=== PATIENT | female | born 1980 | race Two or more races ===

== ENCOUNTER 2023-01-31 21:15 | Emergency (ER) | payer MEDICAID, OTHER ==
[~2023-01-31] VITALS: Ht 170.2 cm; Wt 54.4 kg
[2023-01-31 21:20] VITALS: BP 129/77; PULSE 125; RESP 18; O2SAT 99
[2023-02-01] MEDS ORDERED: AUG875T PO (11:21)
== END 2023-01-31 21:25 | disposition left against medical advice (07) ==
LOC: EDBD 21:15 → ER 21:21
DX: S60.562A Insect bite (nonvenomous) of left hand, initial encounter (principal); Z53.21 Procedure and treatment not carried out due to patient leaving prior to being seen by health care provider; W57.XXXA Bitten or stung by nonvenomous insect and other nonvenomous arthropods, initial encounter; Y93.89 Activity, other specified; Y92.89 Other specified places as the place of occurrence of the external cause; Y99.8 Other external cause status

== ENCOUNTER 2023-02-01 02:15 | Emergency (ER) | payer MEDICAID ==
[~2023-02-01] VITALS: Ht 157.5 cm; Wt 54.0 kg
[2023-02-01 02:15] VITALS: BP 112/43; PULSE 90; RESP 18; O2SAT 98
[2023-02-01] MEDS ORDERED: AUG875T PO (11:21)
== END 2023-02-01 03:27 | disposition left against medical advice (07) ==
LOC: ER 02:15
DX: T63.311A Toxic effect of venom of black widow spider, accidental (unintentional), initial encounter (principal); Z53.21 Procedure and treatment not carried out due to patient leaving prior to being seen by health care provider

== ENCOUNTER 2023-02-01 08:25 | Emergency (ER) | payer MEDICAID ==
[~2023-02-01] VITALS: Ht 157.5 cm; Wt 44.0 kg
[2023-02-01 08:38] VITALS: BP 135/85; PULSE 94; RESP 18; TEMP 98; O2SAT 95
[2023-02-01] MEDS ORDERED: cefTRIAXone SOD 1,000 MG VL IM ONE (10:45)
[2023-02-01] MEDS ORDERED: ACETAMINOPHEN 500 MG TAB PO ONE (10:45)
[2023-02-01] MEDS ORDERED: AUG875T PO (11:21)
== END 2023-02-01 12:14 | disposition home or self-care (01) ==
LOC: ER 08:25
DX: S60.561A Insect bite (nonvenomous) of right hand, initial encounter (principal); W57.XXXA Bitten or stung by nonvenomous insect and other nonvenomous arthropods, initial encounter; Y93.89 Activity, other specified; Y92.89 Other specified places as the place of occurrence of the external cause; Y99.8 Other external cause status
CPT/HCPCS: 96372; 99283; J0696